=== PATIENT | male | born 1940 | race Caucasian/White ===

== ENCOUNTER 2019-08-11 07:00 | Emergency (ER) | payer MEDICARE, SELFPAY ==
--- NOTE | ~2019-08-11 | CT_ITS ---
EXAMINATION: CT brain wo con INDICATION: Severe headache COMPARISON: None TECHNIQUE: Standard unenhanced head CT. The dose-length product (DLP) was 605.33 mGy-cm. The mA was a djusted according to patient size. Iterative reconstruction technique was employed. FINDINGS: There is no acute intraparenchymal hemorrhage. No evidence of mass lesion. No evidence of a cute infarction. Small area of low attenuation in the left insular cortex is consistent with prior in farction. There is mild periventricular and subcortical hypodensity probably related to small vessel ischemic disease. There is mild prominence of the sulci and ventricles related to cerebral atrophy. I ntracranial calcified cerebral atherosclerosis is noted. There are no extra-axial collections. There is no mass effect or midline shift. The orbits and soft tissues are unremarkable. The visualized sin uses and mastoid air cells are well aerated. IMPRESSION: 1. 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 2. Age related findings. Reviewed, dictated and finalized at location A. [employer] IMPRESSION: 1. 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 2. Age related findings.
--- NOTE | 2019-08-11 07:12 | ED.GENADULT ---
HPI - General Adult General Chief complaint: Headache Stated complaint: pains in head, sob, fever Time Seen by Provider: 08/11/19 07:08 History of Present Illness HPI narrative: Frequent severe pains shooting from the posterior portion of his head to the front since last night. No inciting event. No exacerbating or alleviating factors. No associated symptoms. He tried OTC medications without improvement. He has never had this type of TRIPP before. His bother recently and he has not been sleeping or eating very well. Related Data Home Medications Medication Instructions Recorded Confirmed fluticasone furoate-vilanterol INHALATION 08/11/19 [Breo Ellipta] levalbuterol tartrate INHALATION 08/11/19 Allergies Allergy/AdvReac Type Severity Reaction Status Date / Time No Known Allergies Allergy Unknown Unverified 08/11/19 07:31 Review of Systems Review of Systems: All systems reviewed & are unremarkable except as noted in HPI and below Constitutional: Constitutional: Denies chills, Denies fever(s) and Denies weakness Eyes: Eyes: Denies change in vision ENT: Denies dizziness and Denies sore throat Cardiovascular: Cardiovascular: Denies chest pain Respiratory: Respiratory: Denies dyspnea Gastrointestinal: Gastrointestinal: Denies abdominal pain, Denies nausea and Denies vomiting Neurologic: Denies dizziness, Denies syncope, Reports headache(s), Denies numbness and Denies weakness Psychiatric: Psychiatric: Denies anxiety Endocrine: Endocrine: Denies polydipsia [facility] Past Medical History Medical History Ankle fracture, left 1960 Ankle fracture, right 2000 Asthma Duodenal ulcer 1980 History of prostate cancer IBS (irritable bowel syndrome) Surgical History Surgical History History of cholecystectomy History of radical prostatectomy 08/02/2011 Family History Family History Other Carcinoma of colon Family history of cardiovascular disease Family history of coronary artery disease Social History Social History Smoking status: Current every day smoker Tobacco type: cigarettes Second hand tobacco smoke exposure: No Additional smoking assessment comments: smokes 1 pack a day Alcohol intake: never Substance use: never Substance use type: does not use Gender identity (if verbalized by the patient): Male Exam Const: General: no acute distress, alert and ill appearing chronically Nutritional Appearance: thin Orientation/consciousness: patient oriented x3 HENMT: Face and sinus: sinuses nontender Mouth: Yes dry mucous membranes Eyes: Conjunctivae: conjunctivae normal Pupils: Equal, round and reactive pupils present EOM: EOMs intact bilaterally Resp: Effort & Inspection: normal respiratory effort Auscultation: clear to auscultation bilaterally Cardio: Rate: regular rate Rhythm: regular rhythm Skin: General skin exam: normal color Rashes: no rashes Wounds: no wounds Neuro: General: patient oriented x3, moves all extremities, no focal motor deficits and CN's II-XI intact bilaterally Cranial nerves: Yes Nystagmus not present Speech: normal speech Extrem: General: normal to inspection Course Vital Signs Vital signs: Vital Signs Temperature 36.6 C 08/11/19 07:22 Pulse Rate 93 08/11/19 07:22 Respiratory Rate 18 08/11/19 07:22 Blood Pressure 112/67 08/11/19 07:22 Pulse Oximetry 95 08/11/19 07:22 Temperature 36.6 C 08/11/19 07:22 Pulse Rate 93 08/11/19 07:22 Respiratory Rate 18 08/11/19 07:22 Blood Pressure 112/67 08/11/19 07:22 Pulse Oximetry 95 08/11/19 07:22 Medical Decision Making MDM Narrative Medical decision making narrative: CT Shows no acute findings. TRIPP resolved after treatment. TRIPP most
[2019-08-11 07:22] VITALS: BP 112/67; PULSE 93; RESP 18; TEMP 36.6; O2SAT 95
[2019-08-11] MEDS: SODIUM CHLORIDE 0.9% IV 1,000 ML 999 ML IV CONT (07:55)
[2019-08-11] MEDS: KETOROLAC 30 MG/ML VIAL (*BKC) IV PUSH (07:56)
[2019-08-11] MEDS: METOCLOPRAMIDE HCL INJ 10 MG/2 ML VIAL IV PUSH (07:56)
[2019-08-11 08:00] VITALS: PULSE 76; RESP 19; O2SAT 95
[2019-08-11 08:41] VITALS: BP 107/61; PULSE 73; RESP 26; O2SAT 94
[2019-08-11 08:47] VITALS: PULSE 72; RESP 24; O2SAT 93
--- NOTE | 2019-08-17 07:44 | PC.NURSE ---
LATE ENTRY This note is being entered to document information to the patient's record. The following information was omitted on [08/17/19], by [Kacy PÉREZ stopped at 0855 on 08/11/19].
== END 2019-08-11 09:45 | disposition home or self-care (01) ==
PROVIDERS: Emergency Provider Emergency Medicine; PCP Family Medicine
DX: G44.209 Tension-type headache, unspecified, not intractable (principal); J45.909 Unspecified asthma, uncomplicated; Z85.46 Personal history of malignant neoplasm of prostate; K58.9 Irritable bowel syndrome, unspecified; Z90.79 Acquired absence of other genital organ(s); F17.210 Nicotine dependence, cigarettes, uncomplicated
CPT/HCPCS: 70450; 96361; 96374; 96375; 99284; J0131; J1200; J1885; J2765; J7030